=== PATIENT | male | born 1965 | race Caucasian/White ===

== ENCOUNTER 2019-04-19 00:21 | Emergency (ER) | payer SELFPAY ==
[~2019-04-19] VITALS: Ht 177.8 cm; Wt 77.1 kg
--- NOTE | ~2019-04-19 | EKG ---
[place], [place] ELECTROCARDIOGRAM REPORT NAME: MOE GAMEZ UNIT #: [id number] ROOM: DOCTOR: EPIPHANY DRAFT REPORT BIRTHDATE: [birth year] [facility] Test Date: 2019-04-19 Test Time: 00:37:55 Pat Name: MOE GAMEZ Department: Room: Gender: M Director Decision Support: : 1965 Requested By: CHRISTI MIX Order Number: [id number] Reading MD: Guzman Alonso MD Measurements Intervals [place] Rate: 82 P: 76 [place]: 133 QRS: 22 QRSD: 87 T: 67 QT: 390 QTc: 456 Interpretive Statements Sinus rhythm Normal ECG Electronically Signed On 04-19-2019 9:16:09 PDT by Guzman Alonso MD CM:EKGRPT:ELECTROCARDIOGRAM REPORT [id number] CHRISTI TOLENTINO DRAFT REPORT CHRISTI MIX DO
[~2019-04-19 00:21] MED LIST: MOTRIN800 MG PO; NKHM PO; NORFLEX100 MG PO
[2019-04-19 00:41] LABS: BASO # 0.1 10*3/uL (0.0-0.1); BASO % 0.9 % (0.0-1.0); EOS # 0.2 10*3/uL (0.0-0.4); EOS % 1.1 % (1.0-4.0); HEMATOCRIT 44.3 % (42.0-52.0); HEMOGLOBIN 14.7 g/dl (14.0-18.0); LYMPH # 4.3 10*3/uL (1.3-4.4); LYMPH % 30.8 % (27.0-41.0); MEAN CELL VOLUME 93.3 fl (80.0-94.0); MEAN CORPUSCULAR HGB 30.9 pg (27.0-31.0); MEAN CORPUSCULAR HGB CONC 33.2 g/dl (33.0-37.0); MONO # 1.1 10*3/uL (0.1-1.0); MONO % 7.6 % (3.0-9.0); NEUT # 8.3 10*3/uL (2.3-7.9); NEUT % 59.2 % (47.0-73.0); PLATELET COUNT AUTOMATED 256 10*3/uL (130-400); RED BLOOD COUNT 4.75 10*6/uL (4.50-5.90); RED CELL DISTRI WIDTH 13.5 % (0-14.5); WHITE BLOOD COUNT 14.1 10*3/uL (4.8-10.8)
[2019-04-19 00:57] LABS: ALBUMIN 3.9 gm/dl (3.1-4.5); ALKALINE PHOSPHATASE 99 U/L (45-117); BUN 26 mg/dl (7-24); CHLORIDE 102 mmol/L (98-107); CREATININE 1.57 mg/dL (0.70-1.30); POTASSIUM 3.9 mmol/L (3.5-5.1); SGOT/AST 30 IU/L (3-35); SGPT/ALT 32 U/L (12-78); SODIUM 138 mmol/L (136-145); TOTAL PROTEIN 7.9 gm/dL (6.4-8.2)
[2019-04-19 01:00] LABS: ACETAMINOPHEN (TYLENOL) < 5.0 ug/ml (10-30); ETHYL ALCOHOL < 3.0 mg/dl (<3); TROPONIN I < 0.015 ng/ml (<0.045)
== END 2019-04-19 02:30 | disposition left against medical advice (07) ==
LOC: ED 00:21
PROVIDERS: Student in an Organized Health Care Education/Training Program
DX: T50.901A Poisoning by unspecified drugs, medicaments and biological substances, accidental (unintentional), initial encounter (principal); R55 Syncope and collapse; R41.82 Altered mental status, unspecified; F17.200 Nicotine dependence, unspecified, uncomplicated; Z88.0 Allergy status to penicillin; Y92.098 Other place in other non-institutional residence as the place of occurrence of the external cause

== ENCOUNTER 2020-09-26 13:22 | Emergency (ER) | payer MEDICAID ==
[~2020-09-26] VITALS: Ht 177.8 cm; Wt 65.8 kg
== END 2020-09-26 19:27 | disposition home or self-care (01) ==
LOC: ED 13:22
DX: H57.12 Ocular pain, left eye (principal); Z88.0 Allergy status to penicillin

== ENCOUNTER 2021-03-04 22:19 | Emergency (ER) | payer MEDICAID ==
[2021-03-04] MEDS ORDERED: NAPROSYN500 MG PO (22:42)
== END 2021-03-04 22:48 | disposition home or self-care (01) ==
LOC: ED 22:19
DX: F11.20 Opioid dependence, uncomplicated (principal); M54.41 Lumbago with sciatica, right side; Z88.0 Allergy status to penicillin

== ENCOUNTER 2021-04-12 11:14 | Emergency (ER) | payer MEDICAID ==
[~2021-04-12] VITALS: Ht 177.8 cm; Wt 65.8 kg
[~2021-04-12 11:14] MED LIST changes: +NAPROSYN500 MG PO
== END 2021-04-12 12:15 | disposition home or self-care (01) ==
LOC: ED 11:14
DX: R21 Rash and other nonspecific skin eruption (principal); Z88.0 Allergy status to penicillin; Z79.899 Other long term (current) drug therapy

== ENCOUNTER 2024-01-24 16:08 | Emergency (ER) | payer SELFPAY ==
[~2024-01-24] VITALS: Ht 177.8 cm; Wt 59.0 kg
[2024-01-24] MEDS ORDERED: Acetaminophen/Hydrocodone 5 MG/325 MG TABLET PO ONE (16:35)
[2024-01-24 16:53] LABS: BASO # 0.1 10*3/uL (0.0-0.1); BASO % 0.8 % (0.0-1.0); EOS # 0.4 10*3/uL (0.0-0.4); EOS % 3.4 % (1.0-4.0); HEMATOCRIT 39.7 % (42.0-52.0); LYMPH # 2.2 10*3/uL (1.3-4.4); LYMPH % 19.2 % (27.0-41.0); MEAN CELL VOLUME 92.5 fl (80.0-94.0); MEAN CORPUSCULAR HGB 28.7 pg (27.0-31.0); MEAN PLATELET VOLUME 8.8 fl (9.6-12.3); MONO # 0.9 10*3/uL (0.1-1.0); MONO % 7.5 % (3.0-9.0); NEUT % 68.8 % (47.0-73.0); PLATELET COUNT AUTOMATED 259 10*3/uL (130-400); RED BLOOD COUNT 4.29 10*6/uL (4.50-5.90); WHITE BLOOD COUNT 11.6 10*3/uL (4.8-10.8)
[2024-01-24 17:10] LABS: ALKALINE PHOSPHATASE 88 U/L (46-116); BUN 15 mg/dl (9-23); CHLORIDE 99 mmol/L (98-107); POTASSIUM 4.2 mmol/L (3.4-5.1); SGPT/ALT 21 U/L (5-49); TOTAL PROTEIN 7.4 gm/dL (6.0-8.0)
[2024-01-24] MEDS ORDERED: NAPROSYN500 MG PO (17:32)
== END 2024-01-24 17:30 | disposition home or self-care (01) ==
LOC: ED 16:08
PROVIDERS: Internal Medicine
DX: M79.605 Pain in left leg (principal); M79.604 Pain in right leg; Z88.0 Allergy status to penicillin; F17.200 Nicotine dependence, unspecified, uncomplicated

== ENCOUNTER 2024-03-12 11:30 | Emergency (ER) | payer SELFPAY ==
[~2024-03-12] VITALS: Ht 177.8 cm; Wt 63.5 kg
[2024-03-12] MEDS ORDERED: SODIUM CHLORIDE 0.9% 1,000 ML IV ONE (11:55)
[2024-03-12 12:57] LABS: HEMATOCRIT 35.9 % (42.0-52.0); MEAN CELL VOLUME 89.8 fl (80.0-94.0); MEAN CORPUSCULAR HGB CONC 32.3 g/dl (33.0-37.0); MEAN PLATELET VOLUME 9.4 fl (9.6-12.3); PLATELET COUNT AUTOMATED 319 10*3/uL (130-400); RED CELL DISTRI WIDTH 14.1 % (0-14.5); WHITE BLOOD COUNT 22.1 10*3/uL (4.8-10.8)
[2024-03-12 13:00] LABS: MANUAL DIFF REFLEX YES
[2024-03-12 13:23] LABS: TOTAL CELLS COUNTED 100 #CELLS
[2024-03-12 13:24] LABS: PLATELET SUFFICIENCY NORMAL (NORMAL)
[2024-03-12 13:59] LABS: ALKALINE PHOSPHATASE 95 U/L (46-116); BUN 25 mg/dl (9-23); CHLORIDE 100 mmol/L (98-107); CPK 230 U/L (34-171); POTASSIUM 3.7 mmol/L (3.4-5.1); SGPT/ALT 11 U/L (5-49); TOTAL PROTEIN 6.8 gm/dL (6.0-8.0)
[2024-03-12 14:04] LABS: ETHYL ALCOHOL < 3.0 mg/dl (<3)
[2024-03-12 14:09] LABS: BILIRUBIN Negative (Negative); BLOOD 2+ (Negative); CLARITY Cloudy (Clear); COLOR Orange (Yellow); GLUCOSE 2+ (Negative); KETONE Trace (Negative); LEUKO ESTERASE Negative (Negative); NITRITE Negative (Negative); PH 5.5 (4.5-8.0); SPECIFIC GRAVITY >= 1.030 (1.001-1.030)
[2024-03-12 14:18] LABS: URINE AMPHETAMINES Positive (1000ng/ml); URINE BARBITURATES Negative (200ng/ml); URINE BENZODIAZEPINES Negative (200ng/ml); URINE CANNABINOIDS (THC) Positive (50ng/ml); URINE COCAINE Negative (300ng/ml); URINE METHADONE Negative (300ng/ml); URINE OPIATES Negative (300ng/ml); URINE PHENCYCLIDINE Negative (25ng/ml)
[2024-03-12 14:27] LABS: COARSE GRANULAR CAST 0-2; HYALINE CAST 0-2; MUCOUS 3+
[2024-03-12] MEDS ORDERED: Ketorolac Tromethamine 30 MG/ML VIAL IV ONE (14:35)
[2024-03-12] MEDS ORDERED: VIBRAMYCIN100 MG PO (16:22)
[2024-03-12] MEDS ORDERED: Doxycycline Hyclate 100 MG 2 TAB ED PACK PO SCH (16:25)
== END 2024-03-12 16:10 | disposition home or self-care (01) ==
LOC: ED 11:30
PROVIDERS: Physician Assistant Medical
DX: S20.212A Contusion of left front wall of thorax, initial encounter (principal); J90 Pleural effusion, not elsewhere classified; M25.561 Pain in right knee; Z88.0 Allergy status to penicillin; W01.198A Fall on same level from slipping, tripping and stumbling with subsequent striking against other object, initial encounter; Y93.89 Activity, other specified; Y92.002 Bathroom of unspecified non-institutional (private) residence as the place of occurrence of the external cause; Y99.8 Other external cause status

== ENCOUNTER 2024-03-14 10:12 | Inpatient (IN) | payer MEDICAID ==
[~2024-03-14] VITALS: Ht 177.8 cm; Wt 63.5 kg
[~2024-03-14 10:12] MED LIST changes: +VIBRAMYCIN100 MG PO
[2024-03-14 10:17] VITALS: BP 124/74
[2024-03-14 11:17] LABS: HEMATOCRIT 39.5 % (42.0-52.0); MEAN CELL VOLUME 89.4 fl (80.0-94.0); MEAN CORPUSCULAR HGB CONC 32.4 g/dl (33.0-37.0); MEAN PLATELET VOLUME 9.9 fl (9.6-12.3); PLATELET COUNT AUTOMATED 362 10*3/uL (130-400); RED BLOOD COUNT 4.42 10*6/uL (4.50-5.90); RED CELL DISTRI WIDTH 14.6 % (0-14.5); WHITE BLOOD COUNT 22.6 10*3/uL (4.8-10.8)
[2024-03-14 11:27] LABS: MANUAL DIFF REFLEX YES
[2024-03-14 11:36] LABS: BURR CELLS FEW; OVALOCYTES FEW; PLATELET SUFFICIENCY NORMAL (NORMAL); POLYCHROMASIA SLIGHT; TARGET CELLS FEW; TOTAL CELLS COUNTED 100 #CELLS; TOXIC GRANULATION SLIGHT; VACUOLATION OF NEUTROPHILS SLIGHT
[2024-03-14 11:43] LABS: BILIRUBIN Negative (Negative); BLOOD Negative (Negative); CLARITY Clear (Clear); COLOR Orange (Yellow); GLUCOSE 2+ (Negative); KETONE 2+ (Negative); LEUKO ESTERASE Negative (Negative); NITRITE Negative (Negative); PH 6.5 (4.5-8.0); SPECIFIC GRAVITY >= 1.030 (1.001-1.030)
[2024-03-14 11:44] LABS: ALKALINE PHOSPHATASE 151 U/L (46-116); BUN 19 mg/dl (9-23); CHLORIDE 99 mmol/L (98-107); LIPASE 34 U/L (12-53); POTASSIUM 3.6 mmol/L (3.4-5.1); SGPT/ALT 73 U/L (5-49)
[2024-03-14 11:52] LABS: BACTERIA 1+; URINE AMPHETAMINES Negative (1000ng/ml); URINE BARBITURATES Negative (200ng/ml); URINE BENZODIAZEPINES Negative (200ng/ml); URINE CANNABINOIDS (THC) Positive (50ng/ml); URINE COCAINE Negative (300ng/ml); URINE METHADONE Negative (300ng/ml); URINE OPIATES Negative (300ng/ml); URINE PHENCYCLIDINE Negative (25ng/ml)
[2024-03-14] MEDS ORDERED: AZITHROMYCIN 250 ML IV ONE (13:40)
[2024-03-14] MEDS ORDERED: Ceftriaxone Sodium 1 GM/10 ML SYR IV ONE (13:40)
[2024-03-14] MEDS ORDERED: Vancomycin Hydrochloride 250 ML IV ONE (14:25)
[2024-03-14] MEDS ORDERED: Cefepime Hydrochloride 1 GM in SODIUM CHLORIDE 0.9% 50 ML IV SCH (14:45)
[2024-03-14] MEDS ORDERED: Ondansetron Hydrochloride 4 MG/2 ML VIAL IV PRN (15:25)
[2024-03-14] MEDS ORDERED: BISACODYL 5 MG TAB PO PRN (15:25)
[2024-03-14] MEDS ORDERED: ACETAMINOPHEN 325 MG TAB PO PRN (15:25)
[2024-03-14] MEDS ORDERED: SODIUM CHLORIDE 0.9% 1,000 ML IV SCH (15:35)
[2024-03-14] MEDS ORDERED: IOHEXOL 300 MG/ML 100 ML VIAL IV ONE (15:40)
[2024-03-14 16:00] VITALS: BP 151/51
[2024-03-14] MEDS ORDERED: Dicyclomine Hydrochloride 20 MG TAB PO PRN (16:40)
[2024-03-14] MEDS ORDERED: METHOCARBAMOL 750 MG TAB PO PRN (16:40)
[2024-03-14] MEDS ORDERED: hydrOXYzine 50 MG CAP PO PRN (16:40)
[2024-03-14 18:52] VITALS: BP 164/84
[2024-03-14 19:39] VITALS: BP 159/78
[2024-03-15 00:16] VITALS: BP 154/81
[2024-03-15] MEDS ORDERED: Vancomycin Hydrochloride 1,000 MG in SODIUM CHLORIDE 0.9% 250 ML IV SCH (04:00)
[2024-03-15 04:05] VITALS: BP 148/78
[2024-03-15] MEDS ORDERED: Pantoprazole Sodium 40 MG TAB PO SCH (06:00)
[2024-03-15 06:47] LABS: HEMATOCRIT 38.4 % (42.0-52.0); MEAN CELL VOLUME 87.7 fl (80.0-94.0); MEAN CORPUSCULAR HGB 28.8 pg (27.0-31.0); MEAN CORPUSCULAR HGB CONC 32.8 g/dl (33.0-37.0); MEAN PLATELET VOLUME 9.7 fl (9.6-12.3); PLATELET COUNT AUTOMATED 402 10*3/uL (130-400); RED BLOOD COUNT 4.38 10*6/uL (4.50-5.90); RED CELL DISTRI WIDTH 14.6 % (0-14.5); WHITE BLOOD COUNT 25.2 10*3/uL (4.8-10.8)
[2024-03-15 07:02] LABS: MANUAL DIFF REFLEX YES
[2024-03-15 07:25] LABS: ALKALINE PHOSPHATASE 133 U/L (46-116); BUN 15 mg/dl (9-23); CHLORIDE 100 mmol/L (98-107); SGPT/ALT 53 U/L (5-49); TOTAL PROTEIN 6.9 gm/dL (6.0-8.0); URIC ACID 2.4 mg/dL (3.7-9.2)
[2024-03-15 07:36] LABS: PLATELET SUFFICIENCY HIGH (NORMAL); TOTAL CELLS COUNTED 100 #CELLS
[2024-03-15] MEDS ORDERED: Vancomycin Hydrochloride 1,000 MG/250 ML BAG IV ONE (09:29)
[2024-03-15] MEDS ORDERED: Enoxaparin Sodium 40 MG/0.4 ML SYR SC SCH (10:00)
[2024-03-15] MEDS ORDERED: Ceftriaxone Sodium 1 GM,IV 1 EA in SYRINGE INFUSION 10 ML IV SCH (10:00)
[2024-03-15] MEDS ORDERED: AZITHROMYCIN 250 ML IV SCH (14:00)
== END 2024-03-15 07:32 | disposition short-term general hospital (02) | DRG 548 ==
LOC: ED 10:12 → EDHOLD 14:54
PROVIDERS: Internal Medicine; Student in an Organized Health Care Education/Training Program; ADMIT Family Medicine; ATTEND Family Medicine
DX: M00.861 Arthritis due to other bacteria, right knee (principal); E43 Unspecified severe protein-calorie malnutrition; J18.9 Pneumonia, unspecified organism; N39.0 Urinary tract infection, site not specified; E87.1 Hypo-osmolality and hyponatremia; J90 Pleural effusion, not elsewhere classified; J98.11 Atelectasis; R91.8 Other nonspecific abnormal finding of lung field; R74.01 Elevation of levels of liver transaminase levels; R73.9 Hyperglycemia, unspecified; D50.9 Iron deficiency anemia, unspecified; F11.10 Opioid abuse, uncomplicated; F17.210 Nicotine dependence, cigarettes, uncomplicated; Z71.6 Tobacco abuse counseling; Z82.49 Family history of ischemic heart disease and other diseases of the circulatory system; Z88.0 Allergy status to penicillin